=== PATIENT | female | born 1945 | race Caucasian/White ===

== ENCOUNTER → 2017-04-20 | Outpatient (CLI) | payer OTHER, MEDICARE | LOC: BMCIMAGING 14:38 | PROVIDERS: ATTEND Internal Medicine | DX: Z12.31 Encounter for screening mammogram for malignant neoplasm of breast (principal); Z85.3 Personal history of malignant neoplasm of breast; Z80.3 Family history of malignant neoplasm of breast | CPT/HCPCS: G0202 ==

== ENCOUNTER → 2017-04-22 | Outpatient (CLI) | payer OTHER, MEDICARE | LOC: CIMAGING 12:36 | PROVIDERS: ATTEND Internal Medicine | DX: R92.8 Other abnormal and inconclusive findings on diagnostic imaging of breast (principal); Z80.3 Family history of malignant neoplasm of breast; Z86.000 Personal history of in-situ neoplasm of breast | CPT/HCPCS: 76641; G0204 ==

== ENCOUNTER → 2018-08-13 | Outpatient (CLI) | payer OTHER, MEDICARE | LOC: FIMAGING 11:33 | DX: Z12.31 Encounter for screening mammogram for malignant neoplasm of breast (principal); Z85.3 Personal history of malignant neoplasm of breast ==

== ENCOUNTER → 2019-01-10 | Outpatient (CLI) | payer OTHER, MEDICARE | LOC: BMCIMAGING 18:37 | PROVIDERS: ATTEND Family Medicine | DX: R05 Cough (principal) ==

== ENCOUNTER 2019-01-14 09:45 | Emergency (ER) | payer OTHER, MEDICARE ==
[2019-01-14] MEDS ORDERED: predniSONE 20 MG TAB PO ONE (10:38)
[2019-01-14 10:45] VITALS: BP 139/86
[2019-01-14] MEDS ORDERED: IPRATROPIUM/ALBUTEROL 3 ML DEYVIAL IH ONE (10:49)
--- NOTE | 2019-01-14 10:50 | EDPHY ---
H & P Time Seen by Provider: 01/14/19 10:10 HPI/ROS: CHIEF COMPLAINT: Cough and shortness of breath HISTORY OF PRESENT ILLNESS: Patient is had symptoms since September of last year. She was in [place] and actually was treated with azithromycin and mid September and then around [place] for similar symptoms of cough and exhaustion and shortness of breath. In late November she had recurrent symptoms went to urgent care and was treated with an albuterol inhaler. She felt very tired at that time but all of those above treatments did help for a short time. This Thursday 5 days ago she developed a cough and felt very hot and had recurrent symptoms, she was seen at urgent care and had a x-ray which was negative and was treated with a steroid inhaler including salmeterol. Over the past 48 hr she describes fits of coughing and feeling short of breath and a little bit wheezy, no hemoptysis or leg swelling, no fever or chills. No chest pain. No history of aspiration or choking. REVIEW OF SYSTEMS: Eye: no change in vision ENT: no sore throat Cardiac: no chest pain or syncope Pulmonary: HPI Abdomen: no vomiting, diarrhea, abdominal pain Musculoskeletal: no back pain or leg swelling Skin: no rash Neuro: no headache Constitutional: no fever : no urinary symptoms A comprehensive 10 point review of systems is otherwise negative aside from elements mentioned in the history of present illness. PAST MEDICAL HISTORY: Remote history of breast cancer Social history: Nonsmoker General Appearance: Alert and conversant, cooperative. Eyes: No scleral icterus. ENT, Mouth: Normal mucous membranes. No angioedema. Respiratory: Patient has bilateral expiratory wheezing although she speaks in full sentences. No focal lung sounds. Cardiovascular: Regular rate and rhythm. Gastrointestinal: Abdomen is soft and non tender. Neurological: Alert, face symmetric, normal motor and sensory in extremities. Skin: Warm and dry, no rashes. Musculoskeletal: No peripheral edema. No calf tenderness. Psychiatric: Not agitated. Emergency Department course/MDM: Think it would be unlikely the patient has pulmonary embolism or allergic reaction or CHF. She had a negative x-ray this week by her report at the urgent care. She has had multiple exacerbations and is audibly wheezing on auscultation today. I advised her to use the albuterol inhaler, stop the steroid inhaler, oral prednisone discussed and consented. She had case management assist in making a pulmonology follow-up early next week. Smoking Status: Never smoked Constitutional: Initial Vital Signs Temperature (C) 37.1 C 01/14/19 09:57 Heart Rate 75 01/14/19 09:57 Respiratory Rate 17 01/14/19 09:57 Blood Pressure 141/89 H 01/14/19 09:57 O2 Sat (%) 94 01/14/19 09:57 O2 Delivery Mode Room Air Allergies/Adverse Reactions: Sulfa (Sulfonamide Antibiotics) Allergy (Verified 01/14/19 09:56) Home Medications: Medication Instructions Recorded Fluticasone Propionate 01/14/19 predniSONE [prednisone 20mg (RX)] 20 mg PO Q12 #15 tab 01/14/19 Medical Decision Making - Data Points Medications Given: Discontinued Medications Albuterol/Ipratropium (Duoneb) 3 ml IH EDNOW ONE Stop: 01/14/19 10:50 Last Admin: 01/14/19 10:53 Dose: 3 ml Prednisone (Prednisone) 60 mg PO EDNOW ONE Stop: 01/14/19 10:39 Last Admin: 01/14/19 10:44 Dose: 60 mg Departure - Departure Disposition: Home, Routine, Self-Care Clinical Impression: Acute bronchospasm Condition: Good Instructions: Bronchospasm (ED) Additional Instructions: Use her albuterol inhaler 2 puffs every of 4-6 hours for the next week. Follow up with pulmonology as arranged. Stop the steroid and salmeterol inhaler. Referrals: Abi Barlow MD [Primary Care Provider] - As per Instructions Prescriptions: predniSONE [prednisone 20mg (RX)] 20 mg PO Q12 #15 tab
--- NOTE | 2019-01-14 11:15 | ASMTCMCOM ---
CM Note CM Note Notes: assistance requested by Dr. Jennings for pulmonology follow up. Appointment scheduled with Dr. Reagan at [facility] for Thursday, January 17 at 9AM. CM available for further assistance. Date Signed: 01/14/2019 11:14 AM Electronically Signed By:Marce Hunt LCSW
== END 2019-01-14 11:14 | disposition home or self-care (01) ==
DX: J98.01 Acute bronchospasm (principal)
CPT/HCPCS: 99283; J7512

== ENCOUNTER 2019-02-19 12:31 | Emergency (ER) | payer OTHER, MEDICARE ==
[2019-02-19 12:39] VITALS: BP 118/68
--- NOTE | 2019-02-19 13:29 | EDPHY ---
H & P Stated Complaint: r thumb/r fletcher skin problem Time Seen by Provider: 02/19/19 13:11 HPI/ROS: CHIEF COMPLAINT: A chronic wound right thumb and right fletcher HISTORY OF PRESENT ILLNESS: The patient is a 73-year-old female who was struggling with viral bronchitis for the last several months and has been on several courses of oral and inhaled steroids. At some point about a month ago she suffered a laceration to her right thumb. It has taken a long time to heal. It is now healed but is dry and peeling. She states that she placed hydrogen peroxide on it. She also developed a skin tear few days ago to her right fletcher and is concerned about how to manage it. No fevers. No sign of infection. She has been dressing it with her 's mupirocin ointment and bandages. Severity: Moderate Modifying factors: None REVIEW OF SYSTEMS: Constitutional: denies: chills, fever, recent illness, recent injury EENTM: denies: blurred vision, double vision, nose congestion Respiratory: See HPI Cardiac: denies: chest pain, irregular heart rate, lightheadedness, palpitations Gastrointestinal/Abdominal: denies: abdominal pain, diarrhea, nausea, vomiting, blood streaked stools Genitourinary: denies: dysuria, frequency, hematuria, pain Musculoskeletal: denies: joint pain, muscle pain Skin: See HPI Neurological: denies: headache, numbness, paresthesia, tingling, dizziness, weakness Hematologic/Lymphatic: denies: blood clots, easy bleeding, easy bruising Immunologic/allergic: denies: HIV/AIDS, transplant 10 systems reviewed and negative except as noted EXAM: GENERAL: Well-appearing, well-nourished and in no acute distress. HEAD: Atraumatic, normocephalic. EYES: Pupils equal round and reactive to light, extraocular movements intact, sclera anicteric, conjunctiva are normal. ENT: TMs normal, nares patent, oropharynx clear without exudates. Moist mucous membranes. NECK: Normal range of motion, supple without lymphadenopathy or JVD. LUNGS: Breath sounds clear to auscultation bilaterally and equal. No wheezes rales or rhonchi. HEART: Regular rate and rhythm without murmurs, rubs or gallops. ABDOMEN: Soft, nontender, normoactive bowel sounds. No guarding, no rebound. No masses appreciated. BACK: No CVA tenderness, no spinal tenderness, step-offs or deformities EXTREMITIES: Normal range of motion, no pitting or edema. No clubbing or cyanosis. NEUROLOGICAL: Cranial nerves II through XII grossly intact. Normal speech, normal gait. 5/5 strength, normal movement in all extremities, normal sensation , normal reflexes PSYCH: Normal mood, normal affect. SKIN: Right thumb with slight skin sloughing and dry skin to the right proximal phalanx circumferentially. No obvious erythema or infection. Also a skin tear to her right fletcher. Minimal surrounding erythema. Source: Patient Exam Limitations: No limitations - Personal History Current Tetanus/Diphtheria Vaccine: Unsure Current Tetanus Diphtheria and Acellular Pertussis (TDAP): Unsure - Medical/Surgical History Hx Asthma: No Hx Chronic Respiratory Disease: No Hx Diabetes: No Hx Cardiac Disease: No Hx Renal Disease: No Hx Cirrhosis: No Hx Alcoholism: No Hx HIV/AIDS: No Hx Splenectomy or Spleen Trauma: No Other PMH: breast cancer - Family History Significant Family History: No pertinent family hx - Social History Smoking Status: Never smoked Alcohol Use: None Constitutional: Initial Vital Signs Temperature (C) 36.9 C 02/19/19 12:35 Heart Rate 72 02/19/19 12:35 Respiratory Rate 16 02/19/19 12:35 Blood Pressure 118/68 02/19/19 12:35 O2 Sat (%) 95 02/19/19 12:35 O2 Delivery Mode Room Air Allergies/Adverse Reactions: Sulfa (Sulfonamide Antibiotics) Allergy (Verified 02/19/19 13:15) Home Medications: Medication Instructions Recorded Fluticasone Propionate 01/14/19 predniSONE [prednisone 20mg (RX)] 20 mg PO Q12 #15 tab 01/14/19 Mupirocin 2% [Bactroban 2%] 22 micaela TP BID #1 oint 02/19/19 Medical Decision Making ED Course/Re-evaluation: Patient is mainly here for wound care instructions. She has been doing a good job but we encouraged her to continue using antibiotic ointments and dressings. I encouraged soapy water for cleaning. Also I recommended she discontinue her inhaled steroids as she is no longer having any respiratory symptoms. She will talk with her primary about this because he wanted her to take it for 3 months he because the duration of her viral bronchitis symptoms that began in September. Differential Diagnosis: Partial list of the Differential diagnosis considered include but were not limited to; chronic wound, medication side effects and although unlikely based on the history and physical exam, I also considered sepsis, is cellulitis. Departure - Departure Disposition: Home, Routine, Self-Care Clinical Impression: Delayed wound healing Condition: Fair Instructions: Acute Wounds (ED) Referrals: Abi Barlow MD [Primary Care Provider] - As per Instructions Prescriptions: Mupirocin 2% [Bactroban 2%] 22 micaela TP BID #1 oint
== END 2019-02-19 13:30 | disposition home or self-care (01) ==
DX: S61.011D Laceration without foreign body of right thumb without damage to nail, subsequent encounter (principal); S81.811D Laceration without foreign body, right lower leg, subsequent encounter; Z79.51 Long term (current) use of inhaled steroids; Z85.3 Personal history of malignant neoplasm of breast; Z87.09 Personal history of other diseases of the respiratory system; Z88.2 Allergy status to sulfonamides

== ENCOUNTER 2019-04-06 13:38 | Emergency (ER) | payer OTHER, MEDICARE ==
--- NOTE | 2019-04-06 13:41 | EDPHY ---
H & P Source: Patient Exam Limitations: No limitations - Medical/Surgical History Hx Asthma: No Hx Chronic Respiratory Disease: No Hx Diabetes: No Hx Cardiac Disease: No Hx Renal Disease: No Hx Cirrhosis: No Hx Alcoholism: No Hx HIV/AIDS: No Hx Splenectomy or Spleen Trauma: No Other PMH: breast cancer - Social History Smoking Status: Never smoked Time Seen by Provider: 04/06/19 13:40 HPI/ROS: HPI: This is a 73-year-old female who presents with Chief Complaint: Fall, landed on left wrist Location: Left wrist Quality: Injury and pain Duration: Prior to arrival Signs and Symptoms: No bleeding, no radiation, no numbness, no weakness, no tingling, no incontinence, + decreased range of motion, no swelling, + pain, no fever Timing: Acute Severity: 07/26 Context: Patient is right-hand dominant, presents with accidentally falling on left outstretched hand when her son push stir as she was trying to put a half on him on the back porch. She reports that she lost her footing and fell forward landing on her left outstretched hand. She reports pain all over her left wrist. Complains of decreased range of motion secondary to pain. Denies LOC/head injury/neck pain/dizziness/nausea/vomiting/amnesia. Modifying Factors: Took ibuprofen prior to arrival Comment: ROS: A comprehensive 10 system review of systems is otherwise negative aside from elements mentioned in the history of present illness. MEDICAL/SURGICAL/SOCIAL HISTORY: Medical history: History of breast cancer Surgical history: Denies Social history: Nonsmoker, with children, retired. CONSTITUTIONAL: Moderate distress, moaning loudly, elderly white female, at bedside, awake and alert HEENT: Atraumatic and normocephalic. NECK: supple, no midline tenderness, flexion 45 degrees, extension 45 degrees, right and left lateral flexion 45 degrees. Cardiovascular: Normal S1/S2, regular rate, regular rhythm, without murmur rub or gallop. PULMONARY/CHEST: Symmetrical and nontender. no crepitus. Clear to auscultation bilaterally. Good air movement. No accessory muscle usage. ABDOMEN: Soft, nondistended, nontender, no ecchymosis. EXTREMITIES: 2/2 radial pulses, rib strength 4/5, able to wiggle all 5 fingers without difficulty. Left WRIST: Decreased extension, flexion, radial deviation and ulnar deviation secondary to pain. no scaphoid tenderness, moderate tenderness over ulnar styloid, moderate tenderness over radial styloid. DIP/PIP/MCP flexion/extension intact with good light touch sensation. no deformities, no clubbing, no cyanosis, no edema. NEUROLOGICAL: no focal neuro deficits. GCS 15. Light touch sensation intact. SKIN: Warm and dry, no erythema. no rash. Good capillary refill. (Cammy Alvarez) Constitutional: Initial Vital Signs Temperature (C) 36.6 C 04/06/19 13:43 Heart Rate 67 04/06/19 13:43 Respiratory Rate 16 04/06/19 13:43 Blood Pressure 148/87 H 04/06/19 13:43 O2 Sat (%) 97 04/06/19 13:43 O2 Delivery Mode Room Air Allergies/Adverse Reactions: Sulfa (Sulfonamide Antibiotics) Allergy (Verified 02/19/19 13:15) Home Medications: Medication Instructions Recorded Fluticasone Propionate 01/14/19 predniSONE [prednisone 20mg (RX)] 20 mg PO Q12 #15 tab 01/14/19 Mupirocin 2% [Bactroban 2%] 22 micaela TP BID #1 oint 02/19/19 oxyCODONE/APAP 5/325 [Percocet 1 - 2 tab PO Q4H PRN #12 tab 04/06/19 5/325 (*)] Medical Decision Making - Diagnostics Imaging Results: Imaging Impressions Wrist X-Ray 04/06/19 13:52 Impression: 1. Comminuted transverse intra-articular fracture of the distal radius with mild dorsal angulation. 2. Additional findings as above. Procedures: Procedure: Splint placement. A right sugar-tong Ortho Glass splint and sling applied. After application of the splint I returned and re-examined the patient. The splint was adequately immobilizing the joint and distal to the splint the patient's circulation and sensation was intact. (Cammy Alvarez) ED Course/Re-evaluation: I did not see this patient while she was in the emergency department. However her care was discussed with the PA while the patient was in the department. I agree with treatment plan and management (Michael Mayes) Vital signs reviewed and stable upon arrival. Ice pack applied and Percocet/Zofran given Left wrist x-ray ordered my read at bedside shows comminuted, mild dorsal angulation distal radial fracture, no ulnar fracture Placed in sugar-tong Ortho Glass splint, sling, orthopedic follow-up as will likely require surgery Fall was mechanical in nature No signs of neurovascular compromise/tenting of skin/compartment syndrome/ extremities and joints examined above and below area of concern and are neurovascularly intact. This patient was seen under the supervision of my secondary supervising physician. I evaluated and cared for this patient independently. (Cammy Alvarez) Differential Diagnosis: Differential diagnosis includes but is not limited to dislocation, radial fracture, carpal fracture, scaphoid fracture, metacarpal fracture, sprain, contusion. (Cammy Alvarez) - Data Points Medications Given: Discontinued Medications Ondansetron HCl (Zofran Odt) 4 mg PO EDNOW ONE Stop: 04/06/19 13:53 Last Admin: 04/06/19 13:57 Dose: 4 mg Oxycodone/Acetaminophen (Percocet 5/325) 1 tab PO EDNOW ONE Stop: 04/06/19 13:53 Last Admin: 04/06/19 13:57 Dose: 1 tab Departure - Departure Disposition: Home, Routine, Self-Care Clinical Impression: Closed fracture of left distal radius Qualifiers: Encounter type: initial encounter Fracture morphology: unspecified fracture morphology Qualified Code(s): S52.502A - Unspecified fracture of the lower end of left radius, initial encounter for closed fracture Condition: Good Instructions: Wrist Fracture in Adults (ED), Splint Care (ED), ORIF of a Wrist Fracture (DC) Additional Instructions: Keep the splint dry and in place until seen by Orthopedics. Wear the sling as needed while out of bed for comfort. Take Tylenol 650 mg every 4 hours and/or Ibuprofen 600 mg every 8 hours with food as needed for pain. Use Percocet every 6 hours as needed for severe/break through pain. Do not use Tylenol and Percocet concomitantly. Apply ice for 30 minutes at a time; 2-3 times per day for the next 1-2 days. Follow up with Orthopedics in 5-7 days at which time they will evaluate and recommend with you if conservative management versus surgery is indicated. Return to the ER immediately if you experience new or worsening pain, discoloration, numbness, tingling, or any other symptoms that concern you. Referrals: Abi Barlow MD [Primary Care Provider] - As per Instructions Rodolfo Romero MD [Medical Doctor] - As per Instructions Prescriptions: oxyCODONE/APAP 5/325 [Percocet 5/325 (*)] 1 - 2 tab PO Q4H PRN #12 tab PRN Reason: Pain, Severe
[2019-04-06] MEDS ORDERED: OXYCODONE/APAP 5/325 TAB PO ONE (13:52)
[2019-04-06] MEDS ORDERED: ONDANSETRON DISINTEGRATING 4 MG TAB PO ONE (13:52)
[2019-04-06 14:46] VITALS: BP 131/86
== END 2019-04-06 14:45 | disposition home or self-care (01) ==
PROC: 2W3DX1Z Immobilization of Left Lower Arm using Splint (ICD-10-PCS; principal; 2019-04-06)
DX: S52.572A Other intraarticular fracture of lower end of left radius, initial encounter for closed fracture (principal); W19.XXXA Unspecified fall, initial encounter; Y92.008 Other place in unspecified non-institutional (private) residence as the place of occurrence of the external cause